=== PATIENT | female | born 2000 | race Two or more races ===

== ENCOUNTER 2023-06-01 23:40 | Emergency (ER) | payer SELFPAY ==
[2023-06-02] MEDS ORDERED: Lidocaine 1% w/Epinephrine 1:200K 30 ML VIAL ONE (01:46)
[2023-06-02] MEDS ORDERED: Doxycycline 100 MG CAP PO SCH (03:00)
== END 2023-06-02 02:48 | disposition home or self-care (01) ==
LOC: CSHERS 23:40
DX: L03.112 Cellulitis of left axilla (principal)
CPT/HCPCS: 10060

== ENCOUNTER 2024-07-22 12:35 | Emergency (ER) | payer SELFPAY ==
[~2024-07-22 12:35] MED LIST: Iopamidol 370 76% 100 ML VIAL ONE
[2024-07-22 13:15] LABS: #Basophils 0.04 10x3/uL (0.0-0.2); #Eosinophils 0.15 10x3/uL (0.0-0.5); #Monocytes 0.97 10x3/uL (0.0-1.1); #Neutrophils 8.26 10x3/uL (1.5-8.4); %Basophils 0.4 % (0.0-2.0); %Eosinophils 1.3 % (0.0-6.0); %Monocytes 8.5 % (0.0-10.0); %Neutrophils 72.5 % (40.0-75.0); Hematocrit 42.1 % (34.9-44.5); Hemoglobin 13.5 g/dL (12.0-15.5); Mean Corpuscular HGB CONC 32.1 g/dL (32.0-36.0); Mean Corpuscular Hemoglobin 29.5 pg (27.0-33.0); Mean Corpuscular Volume 92.1 fL (81.6-98.3); Mean Platelet Volume 10.6 fL (7.4-10.4); Platelet Count 250 10x3/uL (150-450); RBC Distribution Width 12.4 % (11.5-14.5); Red Blood Cell (RBC) Count 4.57 10x6/uL (3.90-5.03); White Blood Cell (WBC) Count 11.4 10x3/uL (3.5-10.5)
[2024-07-22 13:25] LABS: BHCG - Serum Negative (NEGATIVE); Pregs Control Background? CLEAR/WHITE (CLR/WHITE); Pregs Control Bar Appear? YES (CONTROL BAR)
[2024-07-22 13:32] LABS: ALT (SGPT) 12 U/L (8-55); AST (SGOT) 11 U/L (5-34); Albumin 3.7 g/dL (3.5-5.0); Alkaline Phosphatase 55 U/L (40-110); Anion Gap 14 mmol/L (10-20); BUN (Urea Nitrogen) 13 mg/dL (7.0-18.7); Bilirubin, Total 0.4 mg/dL (0.2-1.2); Calc. Creatinine Clearance 0 mL/min (70-130); Calcium 9.4 mg/dL (7.8-10.44); Carbon Dioxide 21 mmol/L (22-29); Chloride 108 mmol/L (98-107); Estimated GFR 92; Globulin 4.1 g/dL (2.4-3.5); Glucose 129 mg/dL (70-105); Magnesium 2.3 mg/dL (1.6-2.6); Potassium 3.6 mmol/L (3.5-5.1); Protein, Total 7.8 g/dL (6.0-8.3); Sodium 139 mmol/L (136-145)
[2024-07-22 13:36] LABS: Troponin I Less than 0.010 ng/mL (< 0.028)
== END 2024-07-22 16:35 | disposition home or self-care (01) ==
LOC: CSHERS 12:35
DX: R07.9 Chest pain, unspecified (principal); Z79.899 Other long term (current) drug therapy
CPT/HCPCS: 71045; 71275; 80053; 83735; 84484; 84703; 85025; 85379; 93005; Q9967

== ENCOUNTER 2024-07-22 19:57 | Emergency (ER) | payer SELFPAY ==
[2024-07-22] MEDS ORDERED: HYDROcodone/Acetaminophen 5/325 mg Tablet ONE (21:42)
== END 2024-07-22 22:10 | disposition home or self-care (01) ==
LOC: CSHERS 19:57
DX: S82.51XA Displaced fracture of medial malleolus of right tibia, initial encounter for closed fracture (principal); W19.XXXA Unspecified fall, initial encounter
CPT/HCPCS: 99283